=== PATIENT | female | born 1955 | race African-American/Black ===

== ENCOUNTER 2017-10-09 13:26 | Outpatient (CLI) | payer BC | END 2017-10-09 13:27 | disposition home or self-care (01) | LOC: BICMAMMO 13:26 | PROVIDERS: ATTEND Family Medicine | DX: Z12.31 Encounter for screening mammogram for malignant neoplasm of breast (principal) | CPT/HCPCS: 77063; 77067 ==

== ENCOUNTER 2019-04-07 09:39 | Outpatient (CLI) | payer BC ==
--- NOTE | 2019-04-07 11:00 | CT ---
CT ABDOMEN AND PELVIS WITH IV CONTRAST 04/07/2019 CLINICAL INFORMATION: Epigastric abdominal pain and weight loss. COMPARISON: None. Technique: Multiple contiguous axial CT images are obtained through the abdomen and pelvis with IV contrast. Cor onal reformatted images are provided. FINDINGS: Lower Chest: Lung bases are clear. Vessels: The abdominal aorta is normal in caliber. Abdomen: Portal vein:Patent Gallbladder: Within normal limits for CT imaging. Liver: Several small subcentimeter hypodense lesions are seen in the dome of liver and right hepatic lobe which are too small to characterize. There is a larger 17 mm hypodense lesion in the right hepatic lobe likely due to small cyst. Spleen: within normal limits. Pancreas: within normal limits. Adrenals: within normal limits. 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 There is no evidence of hydronephrosis. Bowel: Scattered colonic diverticuli are seen. There is suggested thickening involving the distal bod y and antrum of stomach likely related to incomplete distention. Appendix: Not visualized, but no secondary signs are seen to suggest appendicitis. Peritoneum: No ascites or free air; no fluid collection. Mesentery and Retroperitoneum: No enlarged mesenteric or retroperitoneal lymph nodes. Abdominal Wall: There is a small fat-containing supraumbilical ventral abdominal wall hernia. Pelvis: Reproductive Organs: The uterus is not visualized likely related to hysterectomy. Pelvis within normal limits. Bladder: Decompressed but otherwise grossly normal in appearance. Bones: Prominent degenerative changes are seen at the pubic symphysis as well as involving the right sacroiliac joint with mild degenerative changes in the spine. IMPRESSION: 1. Subcentimeter hypodense hepatic lesions with larger hypodense lesion in the right hepatic lobe sta tistically likely representing multiple hepatic cysts. Given multiplicity, cystic metastatic lesions cannot be entirely excluded. 2. Colonic diverticulosis. 3. Horseshoe shaped kidney. 4. Hysterectomy. 5. Small fat-containing supraumbilical hernia.
[2019-04-07] MEDS ORDERED: Iopamidol 370 76% 100 ML VIAL ONE (12:52)
== END 2019-04-07 09:40 | disposition home or self-care (01) ==
LOC: CT 09:39
PROVIDERS: ATTEND Internal Medicine Gastroenterology
DX: R10.13 Epigastric pain (principal); R63.4 Abnormal weight loss; K57.30 Diverticulosis of large intestine without perforation or abscess without bleeding; Q63.1 Lobulated, fused and horseshoe kidney; Z90.710 Acquired absence of both cervix and uterus; K42.9 Umbilical hernia without obstruction or gangrene; K76.9 Liver disease, unspecified
CPT/HCPCS: 74177; 82565; Q9967

== ENCOUNTER 2020-03-31 10:49 | Outpatient (CLI) | payer BC ==
--- NOTE | 2020-03-31 11:14 | MMO ---
Bilateral MAMMO Bilat Screen [facility]. CLINICAL HISTORY: Patient is 64 years old and is seen for screening. The patient has no family history of breast cancer. The patient has no personal history of cancer. VIEWS: The views performed were: bilateral craniocaudal with tomosynthesis and bilateral mediolateral oblique with tomosynthesis. FILMS COMPARED: The present examination has been compared to prior imaging studies performed at [facility] on 10/09/2017, and at [facility] on 06/22/2008, 10/20/2009 and 07/01/2014. This study has been interpreted with the assistance of computer-aided detection. MAMMOGRAM FINDINGS: There are scattered fibroglandular densities. There are no suspicious masses, suspicious calcifications, or new areas of architectural distortion. IMPRESSION: THERE IS NO MAMMOGRAPHIC EVIDENCE OF MALIGNANCY. A ROUTINE FOLLOW-UP MAMMOGRAM IN 1 YEAR IS RECOMMENDED. THE RESULTS OF THIS EXAM WERE SENT TO THE PATIENT. ACR BI-RADS Category 1 - Negative MAMMOGRAPHY NOTE: 1. A negative mammogram report should not delay a biopsy if a dominant of clinically suspicious mass is present. 2. Approximately 10% to 15% of breast cancers are not detected by mammography. 3. Adenosis and dense breasts may obscure an underlying neoplasm. Reported by: LAY GIBSON MD Electonically Signed: [id number]
== END 2020-03-31 10:50 | disposition home or self-care (01) ==
LOC: BICMAMMO 10:49
PROVIDERS: ATTEND Nurse Practitioner Family
DX: Z12.31 Encounter for screening mammogram for malignant neoplasm of breast (principal)
CPT/HCPCS: 77063; 77067

== ENCOUNTER 2021-12-04 08:55 | Observation (INO) | payer BC ==
[2021-12-04 09:31] LABS: #Lymphocytes 1.5 thou/uL (1.20-3.40); #Monocytes 0.2 thou/uL (0.11-0.59); #Neutrophils 2.2 thou/uL (1.40-6.50); %Basophils 0.5 % (0.0-1.0); %Lymphocytes 36.9 % (21.0-51.0); %Monocytes 5.5 % (0.0-10.0); %Neutrophils 56.1 % (42.0-75.0); Hemoglobin 13.5 g/dL (12.0-16.0); Mean Corpuscular HGB CONC 31.3 g/dL (32.0-36.0); Mean Corpuscular Volume 92.6 fL (78.0-98.0); Mean Platelet Volume 8.1 fL (7.4-10.4); Platelet Count 137 thou/uL (130-400); RBC Distribution Width 11.4 % (11.5-14.5); Red Blood Cell (RBC) Count 4.64 mill/uL (4.20-5.40); White Blood Cell (WBC) Count 3.9 thou/uL (4.8-10.8)
[2021-12-04 09:55] LABS: ALT (SGPT) 14 U/L (8-55); AST (SGOT) 16 U/L (5-34); Albumin 4.1 g/dL (3.4-4.8); Alkaline Phosphatase 64 U/L (40-110); Anion Gap 13 mmol/L (10-20); BUN (Urea Nitrogen) 6 mg/dL (9.8-20.1); Bilirubin, Total 0.7 mg/dL (0.2-1.2); Calc. Creatinine Clearance 0 mL/min (70-130); Calcium 9.1 mg/dL (7.8-10.44); Carbon Dioxide 27 mmol/L (23-31); Chloride 106 mmol/L (98-107); Estimated GFR 90; Globulin 2.8 g/dL (2.4-3.5); Glucose 103 mg/dL (80-115); Lipase 18 U/L (8-78); Protein, Total 6.9 g/dL (5.8-8.1); Sodium 142 mmol/L (136-145)
[2021-12-04] MEDS ORDERED: Atropine Sulfate 1 mg/10 ml Syringe ONE (10:37)
[2021-12-04] MEDS ORDERED: Clopidogrel Bisulfate 75 MG TAB ONE ×2 (11:15→11:20)
[2021-12-04] MEDS ORDERED: Ondansetron ODT 4 MG TAB PO PRN (12:51)
[2021-12-04] MEDS ORDERED: Ondansetron PF 4 MG/2 ML Vial IVP PRN (12:51)
[2021-12-04] MEDS ORDERED: guaiFENesin 200 MG TAB PO PRN (12:54)
[2021-12-04 13:03] LABS: Bacteria/HPF None Seen HPF (None Seen); Bilirubin Negative (Negative); Blood, Urine Negative (Negative); Clarity Clear (Clear); Glucose, Urine (Dipstick) Normal (Negative); Ketone, Urine Negative (Negative); Leukocyte Negative Leu/uL (Negative); Nitrite Negative (Negative); Protein, Urine (Dipstick) Negative (Neg-Trace); RBC/HPF 0-3 HPF (0-3); Specific Gravity, Urine 1.016 (1.002-1.036); Squamous Epithelial None Seen HPF (0-3); Urobilinogen Normal mg/dL (Less than 2); WBC/HPF 0-3 HPF (0-3); pH, Urine 6.5 (5.0-9.0)
[2021-12-04 13:13] LABS: Troponin I Less than 0.010 ng/mL (< 0.028)
[2021-12-04] MEDS: Sodium Chloride 0.9% 1,000 ML IV SCH (15:37)
[2021-12-04 15:51] VITALS: BMI 23.2
[2021-12-04 16:25] LABS: Troponin I Less than 0.010 ng/mL (< 0.028)
[2021-12-04 17:03] LABS: SARS-CoV-2 NAA Rapid Test DETECTED (NotDetected)
[2021-12-04] MEDS: Megestrol Acetate 40 MG TAB PO SCH (21:58)
[2021-12-04] MEDS: Acetaminophen 325 MG TAB PO PRN (21:58)
[2021-12-04] MEDS: Famotidine 20 MG TAB PO SCH (21:59)
[2021-12-05] MEDS: Sodium Chloride 0.9% 1,000 ML IV SCH (05:02)
[2021-12-05 05:45] LABS: Anion Gap 10 mmol/L (10-20); BUN (Urea Nitrogen) 7 mg/dL (9.8-20.1); Calc. Creatinine Clearance 69 mL/min (70-130); Calcium 8.8 mg/dL (7.8-10.44); Carbon Dioxide 24 mmol/L (23-31); Cardiac Risk 3.2 (Less than 4.5); Chloride 111 mmol/L (98-107); Cholesterol 193 mg/dl (< 200 Desired); Estimated GFR 92; Glucose 98 mg/dL (80-115); HDL Cholesterol 61 mg/dL (>60 Neg Risk); LDL Cholesterol, Calculated 108 mg/dL; Potassium 3.9 mmol/L (3.5-5.1); Sodium 141 mmol/L (136-145); Triglycerides 118 mg/dL (Less than 150)
[2021-12-05 06:12] LABS: Band 4 % (5-11); Eosinophils 2 % (0-10); Hemoglobin 12.8 g/dL (12.0-16.0); Lymphocytes 18 % (21-51); MDiff Complete? YES; Mean Corpuscular HGB CONC 31.7 g/dL (32.0-36.0); Mean Corpuscular Hemoglobin 29.9 pg (27.0-31.0); Mean Corpuscular Volume 94.3 fL (78.0-98.0); Mean Platelet Volume 8.2 fL (7.4-10.4); Monocytes 6 % (0-10); Neutrophil 70 % (42-75); Platelet Count 124 thou/uL (130-400); Platelet Morphology Comment Appears Decreased; RBC Distribution Width 11.4 % (11.5-14.5); RBC Morphology Normal; Red Blood Cell (RBC) Count 4.29 mill/uL (4.20-5.40); White Blood Cell (WBC) Count 2.7 thou/uL (4.8-10.8)
[2021-12-05] MEDS: Megestrol Acetate 40 MG TAB PO SCH ×2 (08:43→21:24)
[2021-12-05] MEDS: Ascorbic Acid 500 mg Chewable Tablet PO SCH (08:44)
[2021-12-05] MEDS: Zinc Sulfate 220 MG CAP PO SCH (08:44)
[2021-12-05] MEDS: Famotidine 20 MG TAB PO SCH ×2 (08:44→21:24)
[2021-12-05] MEDS ORDERED: Cholecalciferol 1,000 UNITS (25 MCG) TAB PO SCH (14:15)
[2021-12-05] MEDS: Acetaminophen 325 MG TAB PO PRN (18:32)
[2021-12-05] MEDS ORDERED: Enoxaparin Sodium 40 MG/0.4 ML SYRINGE SC SCH (21:00)
[2021-12-06 05:08] LABS: Anion Gap 13 mmol/L (10-20); BUN (Urea Nitrogen) 10 mg/dL (9.8-20.1); Calc. Creatinine Clearance 67 mL/min (70-130); Calcium 9.4 mg/dL (7.8-10.44); Carbon Dioxide 24 mmol/L (23-31); Chloride 107 mmol/L (98-107); Estimated GFR 90; Glucose 98 mg/dL (80-115); Potassium 4.3 mmol/L (3.5-5.1); Sodium 140 mmol/L (136-145)
[2021-12-06 05:34] LABS: Band 1 % (5-11); Differential Comment Immature Cell(s); Eosinophils 2 % (0-10); Hemoglobin 13.3 g/dL (12.0-16.0); Hypochromia SLIGHT = 6-15 cells (100X) (0-5/hpf); Lymphocytes 43 % (21-51); MDiff Complete? YES; Mean Corpuscular HGB CONC 31.7 g/dL (32.0-36.0); Mean Corpuscular Hemoglobin 29.2 pg (27.0-31.0); Mean Corpuscular Volume 92.1 fL (78.0-98.0); Monocytes 7 % (0-10); Neutrophil 45 % (42-75); Platelet Count 146 thou/uL (130-400); Platelet Morphology Comment Appears Adequate; Polychromasia SLIGHT = 2-3 cells (100X) (0-2/hpf); RBC Distribution Width 11.4 % (11.5-14.5); Red Blood Cell (RBC) Count 4.56 mill/uL (4.20-5.40); Reflex for Review?? YES; White Blood Cell (WBC) Count 4.5 thou/uL (4.8-10.8)
[2021-12-06 08:08] VITALS: BP 132/74; TEMP 97.8
[2021-12-06] MEDS: Acetaminophen 325 MG TAB PO PRN (08:48)
[2021-12-06] MEDS: Ascorbic Acid 500 mg Chewable Tablet PO SCH (08:49)
[2021-12-06] MEDS: Megestrol Acetate 40 MG TAB PO SCH (08:49)
[2021-12-06] MEDS: Zinc Sulfate 220 MG CAP PO SCH (08:49)
[2021-12-06] MEDS: Famotidine 20 MG TAB PO SCH (08:50)
[2021-12-06] MEDS ORDERED: Cholecalciferol 1,000 UNITS (25 MCG) TAB PO SCH (09:00)
[2021-12-09 07:15] LABS: Norovirus GI Negative (Negative); Norovirus GII Negative (Negative)
== END 2021-12-06 11:42 | disposition home or self-care (01) ==
LOC: ERS 08:55 → ERHOLD 12:09 → 2SW 15:23
PROVIDERS: ADMIT Internal Medicine; ATTEND Internal Medicine
DX: U07.1 COVID-19 (principal); R00.1 Bradycardia, unspecified; R07.89 Other chest pain; R42 Dizziness and giddiness; K52.9 Noninfective gastroenteritis and colitis, unspecified; D72.819 Decreased white blood cell count, unspecified; R53.1 Weakness; I08.3 Combined rheumatic disorders of mitral, aortic and tricuspid valves; R63.4 Abnormal weight loss; Z68.23 Body mass index [BMI] 23.0-23.9, adult; Z88.0 Allergy status to penicillin; Z88.8 Allergy status to other drugs, medicaments and biological substances; Z91.040 Latex allergy status
CPT/HCPCS: 36415; 71045; 80048; 80053; 80061; 81001; 83605; 83615; 83630; 83690; 83735; 83880; 84443; 84484; 85025; 85060; 85379; 86140; 87015; 87206; 87798; 93005; 93306; 96372; 96374; G0378; J0461; J1650; J7050; S0179; U0002

== ENCOUNTER 2023-09-18 12:40 | Outpatient (CLI) | payer MEDICARE | END 2023-09-18 12:41 | disposition home or self-care (01) | LOC: BICCT 12:40 | DX: R10.9 Unspecified abdominal pain (principal); Q63.1 Lobulated, fused and horseshoe kidney | CPT/HCPCS: 74177; 82565; Q9967 ==

== ENCOUNTER 2023-10-10 10:13 | Outpatient (CLI) | payer MEDICARE | END 2023-10-10 10:14 | disposition home or self-care (01) | LOC: BICMAMMO 10:13 | PROVIDERS: ATTEND Nurse Practitioner Family | DX: Z12.31 Encounter for screening mammogram for malignant neoplasm of breast (principal); Z13.820 Encounter for screening for osteoporosis; N95.1 Menopausal and female climacteric states; M54.50 Low back pain, unspecified; M47.816 Spondylosis without myelopathy or radiculopathy, lumbar region; M51.36 Other intervertebral disc degeneration, lumbar region; M85.89 Other specified disorders of bone density and structure, multiple sites | CPT/HCPCS: 72100; 77063; 77067; 77080 ==

== ENCOUNTER 2023-10-29 07:24 | Outpatient (CLI) | payer MEDICARE, MEDICAID | END 2023-10-29 07:25 | disposition home or self-care (01) | LOC: ULT 07:24 | PROVIDERS: ATTEND Nurse Practitioner Family | DX: K11.1 Hypertrophy of salivary gland (principal); R10.9 Unspecified abdominal pain; R10.2 Pelvic and perineal pain; Q63.1 Lobulated, fused and horseshoe kidney | CPT/HCPCS: 72170; 76700; 76999 ==

== ENCOUNTER 2023-10-29 15:39 | Emergency (ER) | payer MEDICARE, MEDICAID ==
[~2023-10-29 15:39] MED LIST: Iopamidol 370 76% 100 ML VIAL ONE
[2023-10-29 19:49] LABS: #Basophils Less than 0.03 10x3/uL (0.0-0.2); %Basophils 0.4 % (0.0-1.0); %Eosinophils 2.5 % (0.0-10.0); %Lymphocytes 45.2 % (21.0-51.0); %Monocytes 8.6 % (0.0-10.0); %Neutrophils 42.9 % (42.0-75.0); Hematocrit 41.7 % (36.0-47.0); Hemoglobin 12.9 g/dL (12.0-16.0); Mean Corpuscular HGB CONC 30.9 g/dL (32.0-36.0); Mean Corpuscular Volume 90.7 fL (78.0-98.0); Platelet Count 187 10x3/uL (130-400); RBC Distribution Width 12.9 % (11.5-14.5)
[2023-10-29 20:09] LABS: ALT (SGPT) 13 U/L (8-55); AST (SGOT) 19 U/L (5-34); Albumin 3.9 g/dL (3.4-4.8); Alkaline Phosphatase 69 U/L (40-110); Anion Gap 12 mmol/L (10-20); BUN (Urea Nitrogen) 12 mg/dL (9.8-20.1); Bilirubin, Total 0.4 mg/dL (0.2-1.2); Calc. Creatinine Clearance 0 mL/min (70-130); Calcium 9.5 mg/dL (7.8-10.44); Carbon Dioxide 28 mmol/L (23-31); Chloride 105 mmol/L (98-107); Estimated GFR 81; Globulin 3.1 g/dL (2.4-3.5); Glucose 92 mg/dL (80-115); Potassium 3.7 mmol/L (3.5-5.1); Sodium 141 mmol/L (136-145)
[2023-10-29] MEDS ORDERED: Lidocaine 2% Viscous 10 mL, Alum & Magn 30 mL SSW SCH (20:15)
== END 2023-10-29 21:45 | disposition home or self-care (01) ==
LOC: ERS 15:39
DX: R10.13 Epigastric pain (principal); R10.816 Epigastric abdominal tenderness; R10.813 Right lower quadrant abdominal tenderness
CPT/HCPCS: 36415; 71260; 72170; 74177; 76700; 76999; 80053; 85025

== ENCOUNTER → 2025-04-19 | Day surgery (SDC) | payer MEDICARE | LOC: SDC 13:47 | PROVIDERS: ATTEND Internal Medicine Gastroenterology | PROC: 4A0B8BZ Measurement of Gastrointestinal Pressure, Via Natural or Artificial Opening Endoscopic (ICD-10-PCS; principal; 2025-04-19) | DX: R13.10 Dysphagia, unspecified (principal); R19.7 Diarrhea, unspecified; Z87.891 Personal history of nicotine dependence; Z90.710 Acquired absence of both cervix and uterus; Z91.040 Latex allergy status; Z88.0 Allergy status to penicillin | CPT/HCPCS: 91010 ==